=== PATIENT | male | born 1995 | race African-American/Black ===

== ENCOUNTER 2019-08-05 21:30 | Emergency (ER) | payer MEDICAID ==
[~2019-08-05] VITALS: Ht 185.4 cm; Wt 59.9 kg
[2019-08-05 23:39] LABS: Urine Bacteria MOD /hpf (None Seen); Urine Blood Negative /uL (Negative); Urine Hyaline Cast MANY /lpf (0 - 2); Urine Mucus FEW (None Seen); Urine WBC 328 /hpf (0 - 3)
[2019-08-06 02:03] VITALS: BP 150/103
[2019-08-06] MEDS ORDERED: AZITHROMYCIN 250 MG TAB PO ONE (02:30)
[2019-08-06] MEDS ORDERED: cefTRIAXone W LIDOCAINE 1 GM IM IM ONE (02:30)
[2019-08-06] MEDS ORDERED: cefTRIAXone SOD 1,000 MG VL IM ONE (02:30)
[2019-08-06] MEDS ORDERED: ONDANSETRON ODT 4 MG TAB PO ONE (03:15)
== END 2019-08-06 03:39 | disposition home or self-care (01) ==
LOC: ER 21:32
DX: S69.92XA Unspecified injury of left wrist, hand and finger(s), initial encounter (principal); R30.0 Dysuria; Z20.2 Contact with and (suspected) exposure to infections with a predominantly sexual mode of transmission; F17.290 Nicotine dependence, other tobacco product, uncomplicated; X58.XXXA Exposure to other specified factors, initial encounter; Y93.89 Activity, other specified; Y92.89 Other specified places as the place of occurrence of the external cause; Y99.8 Other external cause status
CPT/HCPCS: 29130; 36415; 73140; 81001; 82962; 86308; 87070; 87804; 87880; 96372; 99284; J0696; Q0162